=== PATIENT | female | born 1995 | race Caucasian/White ===

== ENCOUNTER 2016-11-23 22:05 | Outpatient (CLI) | payer OTHER ==
[2016-11-23 23:03] VITALS: BP 144/65; PULSE 91; RESP 16; TEMP 96.1
--- NOTE | 2017-01-31 08:43 | P.MSEPDOC ---
Presenting Problems - Arrival Data Date of Arrival on Unit: 11/23/16 Time of Arrival on Unit: 22:05 Mode of Transport: Ambulatory - Complaint OB-Reason for Admission/Chief Complaint: Other Comment: Pt presents to triage with c/o spotting x1 at 2100 and itching/burning since Monday. Medical History - Information : 2 Para: 1 Term: 1 : 0 Abortions: Spontaneous or Elective: 0 Number of Living Children: 1 - Gestational Age Gestational Age by RALPH (wks/days): 24 Weeks and 4 Days - History Complications: Smoker Comment: Pt reports having low lying placenta. Review of Systems - Review of Systems Constitutional: No problems Breast: No problems ENT: No problems Cardiovascular: No problems Respiratory: No problems Gastrointestinal: No problems Genitourinary: No problems Musculoskeletal: No problems Neurological: No problems Skin: No problems Vital Signs - Temperature Temperature: 96.1 F Temperature Source: Temporal Artery Scan - Pulse Right Pulse Rate: 91 Pulse Assessment Method: Pulse Oximetry - Respirations Respiratory Rate: 16 Oxygen Delivery Method: Room Air O2 Sat by Pulse Oximetry: 99 - Blood Pressure Right Arm Blood Pressure: 144/65 Blood Pressure Mean: 91 Blood Pressure Source: Automatic Cuff Medical Screen Scoring (Pre) - Cervical Exam Dilation: Exam Deferred Effacement: Exam Deferred Membranes: Intact - Uterine Contractions Frequency: N/A Duration: N/A Intensity: N/A - Maternal Vital Signs Maternal Temperature: N/A Signs of Preeclampsia: N/A Maternal Respirations: N/A - Maternal Trauma Maternal Trauma: N/A - Assessment Baseline FHR: 150 Heart Rate - NICHD Category: Category I (Normal) = 0 Position: N/A Station: N/A - Total Score Total Score (Pre): 0 - Level of Risk Level of Risk: N/A Physician Notification (Pre) - Physician Notified Physician Notified Date: 11/23/16 Physician Notified Time: 22:30 Physician/Practitioner Notifed:: Dr. Hoff Spoke With: Dr. Hoff New Order Received: Yes (Spec. exam.) - Notification Comment Comment: Order for spec. exam. If not bleeding noted, pt can be discharged home with instructions to follow up with primary OB. Disposition - Disposition OB Disposition: Discharge to home Discharge Date: 11/23/16 Discharge Time: 22:38 I agree with the RN Medical Screening Exam: Yes Risk & Benefit of care provided described in d/c instruction: Yes Diagnosis: SPOTTING COMPLICATING , SECOND TRIMESTER
== END 2016-11-23 22:38 | disposition home or self-care (01) ==
LOC: FBPOP 22:05
PROVIDERS: ATTEND Obstetrics & Gynecology
DX: O26.852 Spotting complicating pregnancy, second trimester (principal); Z3A.24 24 weeks gestation of pregnancy
CPT/HCPCS: 99213

== ENCOUNTER → 2016-12-07 | Outpatient (CLI) | payer OTHER ==
[2016-12-07 16:27] LABS: Basophils % (A) 0 %; CH 34.7; CHCM 36.1; Eosinophils # (A) 0.2 k/uL (0-0.7); Eosinophils % (A) 2 %; HCT 35.3 % (34.0-46.0); HDW 2.99; HGB 12.6 gm/dL (11.4-16.0); Luc # (Auto) 0.09; Luc % (Auto) 1; Lymphocytes # (A) 1.3 k/uL (1.0-4.8); Lymphocytes % (A) 19 %; MCH 34.5 pg (25.0-35.0); MCHC 35.7 g/dL (31.0-37.0); MCV 96.7 fL (80.0-100.0); Monocytes # (A) 0.2 k/uL (0-1.0); Monocytes % (A) 3 %; Neutrophils # (A) 4.9 k/uL (1.3-7.7); Neutrophils % (A) 74 %; RBC 3.65 m/uL (3.80-5.40); RDW 13.8 % (11.5-15.5); WBC 6.7 k/uL (4.0-11.0); WBC (Perox) 6.94
== END | disposition home or self-care (01) ==
LOC: LABWHC1 14:59
PROVIDERS: ATTEND Obstetrics & Gynecology
DX: Z34.90 Encounter for supervision of normal pregnancy, unspecified, unspecified trimester (principal); Z3A.00 Weeks of gestation of pregnancy not specified
CPT/HCPCS: 36415; 82950; 85025

== ENCOUNTER 2017-02-04 19:43 | Inpatient (IN) | payer OTHER ==
[2017-02-04] MEDS ORDERED: WATER IVPB STA ×2 (20:02)
[2017-02-04] MEDS ORDERED: OXYTOCIN 10 UNIT/ML 1 ML VIAL IM PRN (20:02)
[2017-02-04] MEDS ORDERED: PENICILLIN POTASSIUM IVPB STA ×2 (20:02)
[2017-02-04] MEDS ORDERED: TERBUTALINE 1 MG/ML VIAL SQ PRN (20:02)
[2017-02-04] MEDS ORDERED: CARBOPROST TROMETHAMINE 250 MCG/ML 1 ML AMP IM PRN (20:02)
[2017-02-04] MEDS ORDERED: METHYLERGONOVINE 0.2 MG/ML 1 ML AMP IM PRN (20:02)
[2017-02-04] MEDS ORDERED: LIDOCAINE 1% (PF) 10 MG/ML (30 ML SDV) SQ PRN (20:02)
[2017-02-04] MEDS ORDERED: DEXTROSE 5% IVPB STA ×2 (20:02)
[2017-02-04] MEDS ORDERED: PENICILLIN G POTASSIUM 5,000,000 UNIT in DEXTROSE 5% IN WATER 100 ML IVPB STA ×2 (20:19)
--- NOTE | 2017-02-04 20:27 | P.HPOB ---
History of Present Illness H&P Date: 02/04/17 Chief Complaint: My water Broke at 6:00 PM Is a 21-year-old white female 2 para 1001 EDC 03/11/2017 at 35 weeks gestation. Patient has been followed at [facility] by another professional driver, and has seen high risk specialists at [facility] for small for gestational age fetus. She has received steroids 1 month ago. She denies uterine contractions. She states that her water broke, clear fluid with continuous leakage at approximately 6 PM. Fetus is been active throughout the . She denies uterine contractions at this time. Past medical history is significant for asthma and psoriasis. Current medications vitamins daily, albuterol inhaler when necessary. Social history patient is single, she is been a tobacco smoker one pack per day since age 15. She denies alcohol, marijuana, or any drug use. ALLERGIES none known. Family history is significant for a brother who has epileptic seizures, as well as gestational diabetes in both of her grandparents. Deliver history is negative. history is pending, records are being requested from [facility]. On exam this is a pleasant young female, 5 foot 2 inches, 154 pounds, vital signs are stable and she is afebrile. The general physical exam is within normal limits, patient has facial piercings as well as tattoos. Chest is clear. Abdomen is obviously gravid, aged clinically. Extremities reveal no edema. Cervix is 5 cm dilated, 80% effaced, -1 to -2 station, vertex presentation. heart rate is in the 140s baseline with overall good variability. Impression: 35 week intrauterine , care elsewhere, here with spontaneous amniorrhexis at 5 cm dilatation. History is significant for small for gestational age fetus, steroids have been received. Plan: Penicillin G prophylaxis. Consider oxytocin augmentation pending progress. Close maternal and surveillance. Anticipate normal spontaneous vaginal delivery. Pediatric team aware of patient's presence. Review of Systems Negative except as in HPI. Past Medical History Past Medical History: Asthma Additional Past Medical History / Comment(s): history of History of Any Multi-Drug Resistant Organisms: None Reported Past Surgical History: No Surgical Hx Reported Smoking Status: Current every day smoker Medications and Allergies Home Medications Medication Instructions Recorded Confirmed Type Sqj-Ksql-Rdjac Acid 1 cap PO DAILY 12/06/13 02/04/17 History [-U Capsule] Allergies Allergy/AdvReac Type Severity Reaction Status Date / Time No Known Allergies Allergy Verified 02/04/17 19:44 Exam - Vital Signs Vital signs: Intake and Output 02/04/17 02/04/17 02/04/17 06:59 14:59 22:59 Other: Weight 69.853 kg Patient Weight 02/05/17 05:59 Weight 69.853 kg See Dictation, please Assessment and Plan Plan: Penicillin G prophylaxis. Urine drug screen. Obtaining records from other provider. environmental services associate consult. Pediatric team aware of patient's presence. Close maternal and surveillance. Anticipate normal spontaneous vaginal delivery. Time with Patient: Greater than 30
[2017-02-04] MEDS: LACTATED RINGERS 1,000 ML IV SCH (20:45)
[2017-02-04 20:56] LABS: Basophils % (A) 0 %; CH 34.7; CHCM 35.6; Eosinophils # (A) 0.2 k/uL (0-0.7); Eosinophils % (A) 2 %; HCT 35.4 % (34.0-46.0); HDW 3.24; HGB 12.1 gm/dL (11.4-16.0); Luc # (Auto) 0.11; Luc % (Auto) 1; Lymphocytes # (A) 1.7 k/uL (1.0-4.8); Lymphocytes % (A) 17 %; MCH 33.5 pg (25.0-35.0); MCHC 34.2 g/dL (31.0-37.0); Mean Platelet Volume 7.5; Monocytes # (A) 0.3 k/uL (0-1.0); Monocytes % (A) 3 %; Neutrophils # (A) 7.6 k/uL (1.3-7.7); Neutrophils % (A) 76 %; RBC 3.62 m/uL (3.80-5.40); RDW 13.5 % (11.5-15.5); WBC 9.9 k/uL (4.0-11.0)
[2017-02-04 20:57] VITALS: BMI 28.1
[2017-02-04] MEDS: OXYTOCIN 20 UNITS/1000 ML NS 1,000 ML IV SCH (21:16)
--- NOTE | 2017-02-05 01:03 | P.PROBDLV ---
Vaginal Delivery Note - . Vaginal Delivery Note: This is a 21-year-old white female 2 para 1001 this is a 21-year-old white female 2 para 1001 who presented at 35 weeks gestation with spontaneous rupture of membranes. She denied vaginal bleeding. Fetus is been active throughout the . care was limited, late presentation, given through [facility]. She has been followed by high risk for small for gestational age fetus. She has not received a flu shot or the tdap. She did receive a course of steroids approximately 1 month ago, 2 injections. Please see my dictated history and physical for details. On admission she was 5 cm dilated, 90% effaced, -2 station, ruptured membranes, vertex presentation, slightly posterior. Penicillin G 5 million units was given prophylactically. Urine drug screen was ordered. She progressed through labor, denied offer for pain medication. She became completely dilated at 0038 hours and had a precipitous urge to push. Infant's head delivered occiput anterior and restituted accordingly. There was no nuchal cord noted. The left or anterior shoulder was delivered easily from underneath the pubic symphysis, and the patient delivered a liveborn male infant at 0039 hours. Oropharynx, nasopharynx, and external nares were all bulb suctioned. The umbilical cord was doubly clamped and ligated, he was handed to waiting nurses for evaluation where scores of 8 and 9 at one and 5 minutes respectively were given. weighed 05/04/2004 grams or 4 lbs. 10 oz. The placenta delivered spontaneously, it was inspected and noted to be slightly macerated in appearance. It was sent to pathology for evaluation. Placental time 0044 hours. At this time the perineal body was redraped. Inspection of the cervix, vagina, perineum and periurethral areas revealed no lacerations and no defects. Total estimated blood loss 300 mL's. All sponge needle and enhancement counts were correct at the end of the procedure. Patient and her family are allowed to begin the bonding experience in the LDR. They are requesting circumcision further son. immigration services officer consult has been obtained.
[2017-02-05] MEDS ORDERED: LANOLIN CREAM 5 GM TUBE TOPICAL PRN (01:04)
[2017-02-05] MEDS ORDERED: BENZOCAINE/MENTHOL SPRAY 1 GM/SPRAY AEROSOL TOPICAL PRN (01:04)
[2017-02-05] MEDS ORDERED: SIMETHICONE 80 MG CHEWABLE PO PRN (01:04)
[2017-02-05] MEDS ORDERED: ZOLPIDEM 5 MG TAB PO PRN (01:04)
[2017-02-05] MEDS ORDERED: WITCH HAZEL 1 EACH MED..PAD TOPICAL PRN (01:04)
[2017-02-05] MEDS ORDERED: diphenhydrAMINE ELIXIR 25 MG/10 ML CUP PO PRN (01:04)
[2017-02-05] MEDS ORDERED: HYDROCORTISONE 2.5% RECTAL CREAM 30 GM TUBE RECTAL PRN (01:04)
[2017-02-05] MEDS ORDERED: Acetaminophen-Codeine 300-30mg TAB PO PRN (01:04)
[2017-02-05] MEDS ORDERED: diphenhydrAMINE 25 MG CAP PO PRN (01:04)
[2017-02-05] MEDS ORDERED: diphenhydrAMINE 50 MG/ML 1 ML VIAL IVP PRN ×2 (01:04)
[2017-02-05] MEDS ORDERED: ACETAMINOPHEN TAB 325 MG TAB PO PRN (01:04)
[2017-02-05] MEDS ORDERED: diphenhydrAMINE 50 MG CAP PO PRN (01:04)
[2017-02-05] MEDS ORDERED: DIPH,PERTUS(ACELL)TETVAC-LF 0.5 ML VIAL IM ONE (01:08)
[2017-02-05] MEDS ORDERED: medroxyPROGESTERone 150 MG/ML 1ML VIAL IM ONE (01:09)
[2017-02-05] MEDS: IBUPROFEN 600 MG TAB PO PRN ×2 (01:15→18:35)
[2017-02-05] MEDS: PENICILLIN G POTASSIUM 2,500,000 UNIT in DEXTROSE 5% IN WATER 100 ML IVPB SCH ×2 (04:18)
[2017-02-05] MEDS: LACTATED RINGERS 1,000 ML IV SCH (04:20)
[2017-02-05 12:09] LABS: Treponemal Ab Non-Reactive (Non-Reactive)
[2017-02-05] MEDS: SENNOSIDES-DOCUSATE SODIUM 1 EACH TAB PO SCH ×2 (13:57→20:12)
[2017-02-06 00:19] VITALS: RESP 16
--- NOTE | 2017-02-06 05:18 | P.PN ---
Subjective Progress Note Date: 02/06/17 Principal diagnosis: slept well. Minimal to moderate lochia rubra. Pain well tolerated. Objective - Vital Signs Vital signs: Vital Signs Temp 98.2 F 02/06/17 00:00 Pulse 87 02/06/17 00:00 Resp 16 02/06/17 00:00 BP 124/72 02/06/17 00:00 Pulse Ox 99 02/05/17 04:00 Intake & Output 02/05/17 02/05/17 02/06/17 06:59 18:59 06:59 Weight Other: # Voids - Constitutional General appearance: Present: average body habitus - EENT Eyes: Present: PERRLA ENT: Present: hearing grossly normal - Neck Details: pierced eyebrows, multiple body tattoos. Neck: Present: normal ROM Thyroid: bilateral: normal size - Respiratory Respiratory: bilateral: CTA - Cardiovascular Rhythm: regular - Gastrointestinal General gastrointestinal: Present: normal bowel sounds - Genitourinary Genitourinary Comment(s): fundus firm, midline, 18 week size, nontender. - Integumentary Integumentary Comment(s): multiple tattoos across the entire body. Integumentary: Present: normal - Neurologic Neurologic: Present: CNII-XII intact - Musculoskeletal Musculoskeletal: Present: gait normal, strength equal bilaterally - Psychiatric Psychiatric: Present: A&O x's 3 - Labs CBC & Chem 7: 02/04/17 20:30 Assessment and Plan Plan: continue care today. Anticipate discharge home tomorrow. Time with Patient: Less than 30
[2017-02-06] MEDS: SENNOSIDES-DOCUSATE SODIUM 1 EACH TAB PO SCH ×2 (09:00→22:24)
[2017-02-06] MEDS: LACTATED RINGERS 1,000 ML IV SCH ×2 (22:22→22:23)
[2017-02-06] MEDS: OXYTOCIN 20 UNITS/1000 ML NS 1,000 ML IV SCH (22:23)
[2017-02-06] MEDS: PENICILLIN G POTASSIUM 2,500,000 UNIT in DEXTROSE 5% IN WATER 100 ML IVPB SCH ×2 (22:26)
--- NOTE | 2017-02-07 11:20 | P.DS ---
Providers Date of admission: 02/04/17 20:08 Expected date of discharge: 02/07/17 Attending physician: Brittny Garza Primary care physician: Brittny Garza [facility] Course: This is a 21-year-old white female 2 para 1001 EDC 03/11/2017 at 35 and one sevenths weeks' gestation. Patient presented to labor and delivery with a history of spontaneous rupture of membranes, clear fluid. Her history is significant for late presentation, limited care, consultation with high risk specialists regarding intrauterine growth restriction. Patient received steroids. Her care was otherwise unknown to me, records obtained. Please see dictated history and physical for details. Group B strep cultures were unknown, blood type A+, rubella status immune. Patient progressed through labor with the aid of an epidural. She went on to deliver a liveborn male infant with scores of 8 and 9 at one and 5 minutes respectively. was occiput anterior, estimated blood loss 300 mL , no perineal lacerations were incurred. weighed 05/04/2004 grams or 4 pounds 10.3 ounces. Please see my dictated delivery note for details. Patient has done well in the period. She received Depo-Provera 1 IM for contraceptive purposes. She is not breast-feeding. Her breasts are bilaterally symmetric, the abdomen is soft and nontender, there is no CVA tenderness, uterus is firm and in the midline, 18 week size, nontender and symmetric. Perineal body is clean and dry. Extremities are negative for edema. is doing well in the special care nursery secondary to small for gestational age and early gestation. Patient is being discharged home today in good condition. She will follow-up with me in the office in 6 weeks. I have reminded her no intercourse, tampons or douching. She will use [id number] Advil or Aleve, or ibuprofen products as needed for pain. She will call with any fevers shakes or chills, foul smelling or copious lochia, with the passage of large blood clots, with any pain not alleviated by [id number] products, or indeed with any concerns. Patient Condition at Discharge: Good Plan - Discharge Summary New Discharge Prescriptions: No Action Kus-Gayn-Lxxqh Acid [-U Capsule] 1 cap PO DAILY Discharge Medication List Cij-Gybc-Rqvxz Acid [-U Capsule] 1 cap PO DAILY 12/06/13 [ History] Follow up Appointment(s)/Referral(s): Brittny Garza MD [Primary Care Provider] - 6 Weeks Patient Instructions/Handouts: Vaginal Delivery (DC) Discharge Disposition: HOME SELF-CARE
[2017-02-07 16:24] VITALS: BP 107/78; PULSE 106; TEMP 98.3
== END 2017-02-07 18:52 | disposition home or self-care (01) | DRG 560 ==
LOC: FBPOP 19:43 → 4FBP 20:08
PROVIDERS: ADMIT Obstetrics & Gynecology; ATTEND Obstetrics & Gynecology
PROC: 10E0XZZ Delivery of Products of Conception, External Approach (ICD-10-PCS; principal; 2017-02-05)
DX: O42.913 Preterm premature rupture of membranes, unspecified as to length of time between rupture and onset of labor, third trimester (principal); O36.5930 Maternal care for other known or suspected poor fetal growth, third trimester, not applicable or unspecified; Z37.0 Single live birth; Z3A.35 35 weeks gestation of pregnancy; Z82.0 Family history of epilepsy and other diseases of the nervous system; O99.334 Smoking (tobacco) complicating childbirth; F17.200 Nicotine dependence, unspecified, uncomplicated; O99.52 Diseases of the respiratory system complicating childbirth; J45.909 Unspecified asthma, uncomplicated
CPT/HCPCS: 59025; 80306; 84112; 85025; 86762; 86780; 87340; 87390; 88307; 90715; 99213

== ENCOUNTER 2019-11-30 23:35 | Observation (INO) | payer OTHER ==
[2019-12-01] MEDS ORDERED: AMPICILLIN-SULBACTAM 3 GM in SODIUM CHLORIDE 0.9% 100 ML IVPB STA (00:08)
[2019-12-01] MEDS ORDERED: SODIUM CHLORIDE 0.9% 1,000 ML IV STA (00:08)
[2019-12-01] MEDS ORDERED: PANTOPRAZOLE 40 MG/10 ML VIAL IVP STA (00:09)
[2019-12-01] MEDS ORDERED: MORPHINE SULFATE 4 MG/ML SYRINGE IVP STA (00:09)
[2019-12-01] MEDS ORDERED: MORPHINE SULFATE 4 MG/ML SYRINGE IVP PRN (00:09)
[2019-12-01] MEDS ORDERED: ONDANSETRON 4 MG/2 ML VIAL IVP STA (00:09)
--- NOTE | 2019-12-01 00:10 | ED ---
Recheck HPI - General Chief Complaint: Abdominal Pain Stated Complaint: Recheck kidney pain Time Seen by Provider: 11/30/19 23:39 Source: patient, RN notes reviewed, old records reviewed Mode of arrival: ambulatory Limitations: no limitations - History of Present Illness Initial Comments: This is a 24-year-old female she presents today for evaluation regards to recheck for abnormal findings, patient states she was mostly admitted earlier in the day for consultation regarding gallbladder and liver disease. Maybe some kidney issues as well. Patient admits to some dysuria. Mild nausea mild vomiting mild abdominal pain. No recent travel history or sick contacts. MD Complaint: abnormal lab -: days(s) Returns Today for: Called Because of Abnormal Lab/Test, persistent/worsening pain related to initial visit Symptoms Since Prior Visit: no new symptoms Associated Symptoms: none - Related Data Home Medications Medication Instructions Recorded Confirmed Albuterol Inhaler [Ventolin Hfa 1 - 2 puff INHALATION Q6H PRN 11/30/19 11/30/19 Inhaler] Ibuprofen [Motrin Ib] 200 mg PO DAILY PRN 11/30/19 11/30/19 Loratadine [Claritin] 10 mg PO DAILY 11/30/19 11/30/19 Medroxyprogesterone Acetate 150 mg IM Q84D 11/30/19 11/30/19 [Depo-Provera] Allergies Allergy/AdvReac Type Severity Reaction Status Date / Time No Known Allergies Allergy Verified 11/30/19 23:40 Review of Systems ROS Statement: Those systems with pertinent positive or pertinent negative responses have been documented in the HPI. ROS Other: All systems not noted in ROS Statement are negative. Past Medical History Past Medical History: Asthma Additional Past Medical History / Comment(s): history of, psoriasis, History of Any Multi-Drug Resistant Organisms: None Reported Past Surgical History: No Surgical Hx Reported Additional Past Surgical History / Comment(s): D&C, Past Anesthesia/Blood Transfusion Reactions: No Reported Reaction Past Psychological History: Anxiety, Depression Smoking Status: Current every day smoker Past Alcohol Use History: None Reported Past Drug Use History: None Reported - Past Family History Mother Family Medical History: Asthma, Sleep Apnea/CPAP/BIPAP Additional Family Medical History / Comment(s): bipolar and anxiety General Exam Limitations: no limitations General appearance: alert, in no apparent distress Head exam: Present: atraumatic, normocephalic, normal inspection Eye exam: Present: normal appearance, PERRL, EOMI. Absent: scleral icterus, conjunctival injection, periorbital swelling ENT exam: Present: normal exam, mucous membranes moist Neck exam: Present: normal inspection. Absent: tenderness, meningismus, lymphadenopathy Respiratory exam: Present: normal lung sounds bilaterally. Absent: respiratory distress, wheezes, rales, rhonchi, stridor Cardiovascular Exam: Present: regular rate, normal rhythm, normal heart sounds. Absent: systolic murmur, diastolic murmur, rubs, gallop, clicks GI/Abdominal exam: Present: soft, normal bowel sounds. Absent: distended, tenderness, guarding, rebound, rigid Extremities exam: Present: normal inspection, full ROM, normal capillary refill. Absent: tenderness, pedal edema, joint swelling, calf tenderness Back exam: Present: normal inspection Neurological exam: Present: alert, oriented X3, CN II-XII intact Psychiatric exam: Present: normal affect, normal mood Skin exam: Present: warm, dry, intact, normal color. Absent: rash Course Vital Signs 11/30/19 23:37 Temperature 99.3 F Pulse Rate 129 H Respiratory 18 Rate Blood Pressure 101/56 O2 Sat by Pulse 96 Oximetry - Reevaluation(s) Reevaluation #1: 12/01/19 01:40 Medical records reviewed 12/01/19 01:40 Patient's ER visit from earlier today is revisited Reevaluation #2: 12/01/19 01:41 Patient admits to leaving A secondary severe anxiety - Consultations Consultation #1: Spoke with Dr Light agrees to admit this patient Medical Decision Making - Medical Decision Making 24 female with recheck for abdominal pain. Patient was admitted earlier in the day for both GI and surgical consultation regarding: Cystitis transaminitis. Patient will be admitted for same, is found of urinary tract infection will c ontinue current antibiotics - Lab Data Result diagrams: 12/01/19 01:04 12/01/19 01:04 Lab Results 12/01/19 12/01/19 12/01/19 Range/Units 01:02 01:04 01:04 WBC 7.4 (3.8-10.6) k/uL RBC 4.63 (3.80-5.40) m/uL Hgb 14.7 (11.4-16.0) gm/dL Hct 43.2 (34.0-46.0) % MCV 93.2 (80.0-100.0) fL MCH 31.6 (25.0-35.0) pg MCHC 33.9 (31.0-37.0) g/dL RDW 12.5 (11.5-15.5) % Plt Count 115 L (150-450) k/uL Sodium 135 L (137-145) mmol/L Potassium 3.5 (3.5-5.1) mmol/L Chloride 104 (98-107) mmol/L Carbon Dioxide 22 (22-30) mmol/L Anion Gap 9 mmol/L BUN 12 (7-17) mg/dL Creatinine 0.98 (0.52-1.04) mg/dL Est GFR (CKD-EPI)AfAm >90 (>60 ml/min/1.73 sqM) Est GFR (CKD-EPI)NonAf 82 (>60 ml/min/1.73 sqM) Glucose 133 H (74-99) mg/dL Plasma Lactic Acid Nitish (0.7-2.0) mmol/L Calcium 8.8 (8.4-10.2) mg/dL Total Bilirubin 2.5 H (0.2-1.3) mg/dL AST 226 H (14-36) U/L ALT 266 H (4-34) U/L Alkaline Phosphatase 223 H (38-126) U/L Total Protein 5.7 L (6.3-8.2) g/dL Albumin 3.4 L (3.5-5.0) g/dL Amylase <30 L (30-110) U/L Lipase 26 (23-300) U/L Urine Color Dark Brown Urine Appearance Cloudy H (Clear) Urine pH 6.0 (5.0-8.0) Ur Specific [place] 1.038 H (1.001-1.035) Urine Protein 2+ H (Negative) Urine Glucose (UA) Negative (Negative) Urine Ketones Negative (Negative) Urine Blood Small H (Negative) Urine Nitrite Negative (Negative) Urine Bilirubin 2+ H (Negative) Urine Urobilinogen >12.0 (<2.0) mg/dL Ur Leukocyte Esterase Trace H (Negative) Urine RBC 3 (0-5) /hpf Urine WBC 41 H (0-5) /hpf Urine WBC Clumps Few H (None) /hpf Ur Squamous Epith Cells 18 H (0-4) /hpf Urine Bacteria Rare H (None) /hpf Hyaline Casts 92 H (0-2) /lpf Granular Casts 2 (0) /lpf Urine Mucus Few H (None) /hpf 12/01/19 Range/Units 01:04 WBC (3.8-10.6) k/uL RBC (3.80-5.40) m/uL Hgb (11.4-16.0) gm/dL Hct (34.0-46.0) % MCV (80.0-100.0) fL MCH (25.0-35.0) pg MCHC (31.0-37.0) g/dL RDW (11.5-15.5) % Plt Count (150-450) k/uL Sodium (137-145) mmol/L Potassium (3.5-5.1) mmol/L Chloride (98-107) mmol/L Carbon Dioxide (22-30) mmol/L Anion Gap mmol/L BUN (7-17) mg/dL Creatinine (0.52-1.04) mg/dL Est GFR (CKD-EPI)AfAm (>60 ml/min/1.73 sqM) Est GFR (CKD-EPI)NonAf (>60 ml/min/1.73 sqM) Glucose (74-99) mg/dL Plasma Lactic Acid Nitish 1.4 (0.7-2.0) mmol/L Calcium (8.4-10.2) mg/dL Total Bilirubin (0.2-1.3) mg/dL AST (14-36) U/L ALT (4-34) U/L Alkaline Phosphatase (38-126) U/L Total Protein (6.3-8.2) g/dL Albumin (3.5-5.0) g/dL Amylase (30-110) U/L Lipase (23-300) U/L Urine Color Urine Appearance (Clear) Urine pH (5.0-8.0) Ur Specific [place] (1.001-1.035) Urine Protein (Negative) Urine Glucose (UA) (Negative) Urine Ketones (Negative) Urine Blood (Negative) Urine Nitrite (Negative) Urine Bilirubin (Negative) Urine Urobilinogen (<2.0) mg/dL Ur Leukocyte Esterase (Negative) Urine RBC (0-5) /hpf Urine WBC (0-5) /hpf Urine WBC Clumps (None) /hpf Ur Squamous Epith Cells (0-4) /hpf Urine Bacteria (None) /hpf Hyaline Casts (0-2) /lpf Granular Casts (0) /lpf Urine Mucus (None) /hpf Disposition Clinical Impression: Cellulitis, Cholelithiasis, Transaminitis, Abdominal pain, Cholecystitis, UTI (urinary tract infection) Disposition: ADMITTED IP TO THIS HOSP Condition: Good Is patient prescribed a controlled substance at d/c from ED?: No
[2019-12-01 01:17] LABS: Appearance,Urine Cloudy (Clear); Bacteria,Urine Rare /hpf; Bilirubin,Urine 2+ (Negative); Blood,Urine Small (Negative); Color,Urine Dark Brown; Glucose,Urine (UA) Negative (Negative); Granular Casts,Urine 2 /lpf (0); Hyaline Casts,Urine 92 /lpf (0-2); Ketones,Urine Negative (Negative); Leukocyte Esterase,Urine Trace (Negative); Mucus,Urine Few /hpf; Nitrite,Urine Negative (Negative); Protein,Urine 2+ (Negative); RBC,Urine 3 /hpf (0-5); Specific Gravity,Urine 1.038 (1.001-1.035); Squamous Epithelial Cell,Urine 18 /hpf (0-4); Urobilinogen,Urine >12.0 mg/dL (<2.0); WBC,Urine 41 /hpf (0-5)
[2019-12-01 01:18] LABS: HCT 43.2 % (34.0-46.0); HGB 14.7 gm/dL (11.4-16.0); MCH 31.6 pg (25.0-35.0); MCHC 33.9 g/dL (31.0-37.0); MCV 93.2 fL (80.0-100.0); Mean Platelet Volume 8.9; Platelet Count 115 k/uL (150-450); RBC 4.63 m/uL (3.80-5.40); RDW 12.5 % (11.5-15.5); WBC 7.4 k/uL (3.8-10.6)
[2019-12-01] MEDS ORDERED: ONDANSETRON 4 MG/2 ML VIAL IVP PRN (01:25)
[2019-12-01] MEDS ORDERED: SODIUM CHLORIDE 0.9% 1,000 ML IV ONE (01:25)
[2019-12-01 01:28] LABS: ALT 266 U/L (4-34); AST 226 U/L (14-36); African American GFR (CKD) >90 (>60 ml/min/1.73 sqM); Albumin 3.4 g/dL (3.5-5.0); Alkaline Phosphatase 223 U/L (38-126); Amylase <30 U/L (30-110); Anion Gap 9 mmol/L; Blood Urea Nitrogen 12 mg/dL (7-17); Calcium 8.8 mg/dL (8.4-10.2); Carbon Dioxide 22 mmol/L (22-30); Chloride 104 mmol/L (98-107); Glucose 133 mg/dL (74-99); Non-African American GFR(CKD) 82 (>60 ml/min/1.73 sqM); Potassium 3.5 mmol/L (3.5-5.1); Sodium 135 mmol/L (137-145); Total Bilirubin 2.5 mg/dL (0.2-1.3); Total Protein 5.7 g/dL (6.3-8.2)
[2019-12-01] MEDS ORDERED: POTASSIUM BICARBONATE/CIT AC 20 MEQ TABLET.EFF PO ONE (01:28)
[2019-12-01 02:02] LABS: Band Neutrophils % 36 %; Eosinophils # (M) 0.52 k/uL (0-0.7); Lymphocytes # (M) 0.15 k/uL (1.0-4.8); Metamyelocytes # (M) 0.07 k/uL (0); Metamyelocytes % 1 %; Monocytes # (M) 0.15 k/uL (0-1.0); Neutrophils % (M) 52 %; Nucleated Red Blood Cells 0 /100 WBC (0-0); Total Cells Counted 100
[2019-12-01 02:25] VITALS: BP 94/62; PULSE 98; TEMP 98.6
[2019-12-01 05:05] VITALS: RESP 12
[2019-12-01] MEDS ORDERED: ACETAMINOPHEN TAB 325 MG TAB PO PRN (08:58)
[2019-12-01] MEDS ORDERED: AMPICILLIN-SULBACTAM 3 GM in SODIUM CHLORIDE 0.9% 100 ML IVPB SCH (09:00)
[2019-12-01] MEDS ORDERED: NAPROXEN 250 MG TAB PO SCH (09:00)
[2019-12-01] MEDS ORDERED: PANTOPRAZOLE 40 MG/10 ML VIAL IVP SCH (09:00)
--- NOTE | 2019-12-01 09:52 | P.PN ---
Progress Note - Text Progress Note Date: 12/01/19 Consulted overnight to evaluate the patient. On my arrival into the patient's room, she immediately began to yell at me, asking if I know what I am doing prior to any conversation about the patient's current clinical state. She then began cursing at me and claimed she 'has been dealing with you fucking people' all night. Based on this interaction within 1 minute of my arrival into the room, I exited the room. I will discuss the case with the admitting physician and will no longer be participating in this patient's care.
[2019-12-01 13:25] LABS: Hepatitis A Antibody IgM Non-Reactive (Non-Reactive); Hepatitis B Core IgM Non-Reactive (Non-Reactive); Hepatitis B Surface Antigen Non-Reactive (Non-Reactive)
[2019-12-01 14:26] LABS: Hepatitis C IgG Antibody Non-Reactive (Non-Reactive)
--- NOTE | 2019-12-02 03:58 | HP ---
HISTORY AND PHYSICAL DATE OF ADMISSION: 12/01/2019 This patient was admitted this morning. Earlier today, the patient decided to leave AMA before patient could be seen. She also got upset with Dr. Bright and did let him talk to her or examine him. The patient left AMA. Patient not seen by me. MAGDALENO / CHRISTOFER: [id number] /
--- NOTE | 2019-12-02 04:10 | DS ---
DISCHARGE SUMMARY DATE OF ADMISSION: 12/01/2019 DATE OF DISCHARGE/LEFT AMA: 12/01/2019 HOSPITAL COURSE: This patient presented to the hospital this morning. Left AMA later in the morning. The patient was not seen by me. The patient did not allow Dr. Bright, the surgeon, to either see her also. Dr. Bright called me about the same. MMODL / IJN: [id number] /
== END 2019-12-01 10:00 | disposition left against medical advice (07) ==
LOC: EC 23:35 → 1SOBS 12-01 01:26
PROVIDERS: ADMIT Hospitalist; ATTEND Hospitalist
DX: K80.10 Calculus of gallbladder with chronic cholecystitis without obstruction (principal); L03.90 Cellulitis, unspecified; N39.0 Urinary tract infection, site not specified; R74.0 Nonspecific elevation of levels of transaminase and lactic acid dehydrogenase [LDH]; R10.9 Unspecified abdominal pain; Z53.29 Procedure and treatment not carried out because of patient's decision for other reasons; F17.200 Nicotine dependence, unspecified, uncomplicated; J45.909 Unspecified asthma, uncomplicated; Z82.5 Family history of asthma and other chronic lower respiratory diseases; Z81.8 Family history of other mental and behavioral disorders
CPT/HCPCS: 96376; 96365; 96375; 99285; 36415; 80053; 80074; 82150; 83605; 83690; 85025; 81001; 87086; G0378; J2405; J0295; C9113